=== PATIENT | female | born 1975 | race Caucasian/White ===

== ENCOUNTER 2023-05-27 10:05 | Outpatient (AMB) | payer BC, SELFPAY ==
[2023-05-27 10:35] VITALS: BP 130/78; PULSE 78; TEMP 35.8; O2SAT 98; BMI 45.1
--- NOTE | 2023-05-27 10:35 | AM.OFFWIN_ITS ---
Intake Vital Signs 05/27/23 10:35 Height 5 ft 3 in Weight 254 lb 6 oz BMI 45.1 BP 130/78 Blood Pressure Location Rt brachial Position Sitting Pulse 78 Pulse Source Pulse Oximeter Temp 96.5 F L Temp Source Temporal Artery Scan Pulse Oximetry (%) 98 Oxygen Delivery Method Room Air Intake Visit Reasons: [facility] [employer] Ear Infection Intake Note: Pt is here c/o right ear infection. Pt states she is in pain. Patient Tobacco Use Status: Never used Tobacco Allergies sulfamethoxazole [From Bactrim] Allergy (Unknown, Unverified 05/27/23 10:36) DIZZY trimethoprim [From Bactrim] Allergy (Unknown, Unverified 05/27/23 10:36) DIZZY From Keflex Allergy (Unknown, Uncoded 05/27/23 10:36) LIP SWELLING HPI [facility] [employer] Ear Infection HPI Details 47-year-old female patient presents toda with a one-week history of right ear pain and itching. Reports now hearing is muffled in that ear. reports pain is very severe and keeping her from sleeping. Has been taking Tylenol and Motrin around the clock with minimal relief. [facility] Social History Patient Tobacco Use Status: Never used Tobacco Review of Systems Const All systems reviewed & are unremarkable except as noted in HPI and below Physical Exam Vital Signs: Last Vital Signs Temp 96.5 F L 05/27/23 10:35 Pulse 78 05/27/23 10:35 BP 130/78 05/27/23 10:35 Pulse Ox 98 05/27/23 10:35 Oxygen Delivery Method Room Air 05/27/23 10:35 BMI result Body Mass Index 45.1 Const General: cooperative, healthy appearing, comfortable and no acute distress HEENT Other: severe pain with right ear palpation/exam Head: Yes normal to inspection Ears: TM normal on the left, Abnormal EAC present erythema on the right, edema on the right, EAC tenderness on the right and otic discharge purulent on the right and unable to visualize TM on the right General nose exam: Normal external nose present and Normal nares present Face and sinus: Yes normal facial exam and Yes sinuses nontender Mouth: Normal oral and palatal mucosa present and moist mucous membranes Neck Neck: Yes no lymphadenopathy Resp Effort & Inspection: normal respiratory effort and able to speak in complete sentences Skin General skin exam: no rashes or lesions noted Extrem General: Yes capillary refill normal and Yes no clubbing, cyanosis or edema Psych Appearance: grossly normal Mental Status: mental status grossly normal Speech and movement: Normal speech and movement present Assessment & Plan Assessment & Plan (1) Right otitis externa: Code(s): H60.91 - Unspecified otitis externa, right ear Qualifiers: Otitis externa type: diffuse Chronicity: acute Qualified Code(s): H60.311 - Diffuse otitis externa, right ear Plan: Started on Cipro/DEXA drops I know for her right ear. Reviewed use of this. Also provided 2 days of pain medication as her right ear is exquisitely painful to palpation/during exam. We reviewed indications, use, possible side effects and risks of this medication. I discussed with patient that if she does not improve with treatment, or if new symptoms develop/symptoms worsen, she should return to the clinic for further evaluation. I cannot quite visualize her right TM at this time and if pain persists, she should come back for evaluation of this. She agrees to plan (2) Right ear pain: Code(s): H92.01 - Otalgia, right ear Medications: New ciprofloxacin-dexamethasone 0.3-0.1 % 4 drps otic (ear) right BID 7 days 7.5 mL 0RF H60.311 - Diffuse otitis externa, right ear tramadol 50 mg PO BID PRN 4 tabs 0RF pain 2 days H92.01 - Otalgia, right ear Coding Level of Care Code Est Pt Level 3 (97123) Diagnoses Acute diffuse otitis externa of right ear H60.311 Otitis externa type: diffuse Chronicity: acute Right ear pain H92.01
== END 2023-05-27 11:14 | disposition home or self-care (01) ==
PROVIDERS: Visit Provider Nurse Practitioner Family
DX: H60.311 Diffuse otitis externa, right ear (principal); H92.01 Otalgia, right ear
CPT/HCPCS: 99213